=== PATIENT | male | born 1965 | race African-American/Black ===

== ENCOUNTER 2017-06-05 10:34 | Emergency (ER) | payer MEDICARE, MEDICAID, SELFPAY ==
[2017-06-05 10:35] VITALS: BP 156/92; PULSE 100; RESP 12; TEMP 36.6; O2SAT 100; BMI 26.2
[2017-06-05 11:19] LABS: Absolute Lymphocyte Count 2.19 X10^3/ul (0.83-4.51); Absolute Neutrophil Count 4.3 X10^3/uL (2.0-7.7); Basophil# 0.02 X10^3/uL; Basophil% 0.3 % (0-1); Eosinophil# 0.11 X10^3/uL; Eosinophils% 1.5 % (0-5); Hematocrit 46.2 % (40-54); Hemoglobin 16.5 g/dl (13.0-16.5); Lymphocyte # 2.19 X10^3/ul (4.0); Lymphocyte % 29.9 % (19-41); Mean Corp Hgb Conc 35.7 g/gl (32-36); Mean Corpuscular Hgb 31.5 pg (27.0-32.0); Mean Corpuscular Volume 88.3 fL (80-94); Mean Platelet Vol. 9.5 fl (6.2-12.0); Monocyte% 9.5 % (0-10); Neutrophil % 58.7 % (47-70); Platelet Count 249 K/mm3 (150-450); RBC Distribution Width CV 13.8 % (11.6-14.6); RBC Distribution Width SD 44.7 fl (35.1-43.9); Red Blood Count 5.23 M/mm3 (4.6-6.2); White Blood Count 7.3 K/mm3 (4.4-11.0)
[2017-06-05] MEDS: 0.9% Normal Saline 1,000 ML 1000 ML IV (11:20)
[2017-06-05] MEDS: Ondansetron 4 MG/2 ML Vial IV (11:20)
[2017-06-05 11:22] LABS: POSITIVE COUNT NO; POSITIVE DIFFERENTIAL NO; POSITIVE MORPHOLOGY NO
[2017-06-05 11:33] LABS: Anion Gap 7 (5-15); BUN 10 mg/dL (7-18); BUN/Creat Ratio 11.7 RATIO (10-20); Calcium,Total 9.1 mg/dL (8.5-10.1); Chloride 102 mmol/L (98-107); Creatinine, Serum 0.86 mg/dL (0.70-1.30); EST Glomerular Filtration Rate 99 mL/min (>60); Est Glom Filt Rate - Afr Amer 120 mL/min (>60); Estimated Creatinine Clearance 101.39 ml/min; Glucose 173 mg/dL (74-106); Potassium 3.8 mmol/L (3.5-5.1); Sodium Level 137 mmol/L (136-145)
[2017-06-05 11:47] LABS: Hemoglobin A1c 7.6 % (4.2-6.3)
--- NOTE | 2017-06-05 12:32 | ED.VISSUMM ---
- ER Visit Summary Date of Service: 06/05/17 Chief Complaint: Foot pain History of Present Illness: The patient is a [address] Forrest. He has a long-standing history of diabetic neuropathy. States that he is taking gabapentin for the pain and that his not been controlled for quite some time. States it is become unbearable over the past 2 days. He denies any recent injury. Describes the pain as sharp and diffuse over his feet and lower legs bilaterally. It is 10 out of 10 with walking and 8 out of 10 currently. Physical Examination: Vitals: Stable. Afebrile. General: Well-nourished and well-developed. Head: Normocephalic atraumatic. Neck: Supple, no lymphadenopathy. No JVD. Nontender. Cardiovascular: Regular rate and rhythm. No murmurs. Respiratory: No respiratory distress. Clear to auscultation bilaterally. Abdominal: Soft, nontender, nondistended, normal bowel sounds. No guarding, rebound, or peritoneal signs. Back: Nontender. Extremities: Nontender, no edema. 1+ dorsalis pedis pulse bilaterally. Mild diffuse tenderness palpation. Decreased sensation to light touch in a stocking distribution. Skin: Normal color, no rash. Neurologic: Alert and oriented ?3. Cranial nerves II through XII are intact. Normal strength and sensation. Psych: Normal affect. Test Results: CBC is normal. Chem-7 is marked for glucose of 173. Hemoglobin A1c is 7.6. Emergency Department Course and Treatment: Patient is to the dose of morphine and Zofran IV. He is resting comfortably. Treatment Plan: Patient will be discharged with a short course of Percocet. Instructed follow-up Dr. Forrest for further management of his neuropathy. Disposition: To home in improved and stable condition. Impression: 1. Diabetic neuropathy. This note was generated with [employer] dictation software. It may contain incorrect words, spelling, and punctuation that were not noted in review of the chart prior to signing ED Disposition - Plan for ED Patient: Disposition: Home or Assisted Living Chief Complaint: Other, Pain/Inj Instructions: What Is Peripheral Neuropathy? Prescriptions: Oxycodone HCl/Acetaminophen [Percocet 5/325] 1 tablet PO Q6H PRN PRN 3 Days #20 tablet PRN Reason: Pain Referrals: Doctor,Your [STAFF PHYSICIAN] - 3-5 Days if not improving
== END 2017-06-05 13:20 | disposition home or self-care (01) ==
LOC: ED 11:53
PROVIDERS: Emergency Provider Emergency Medicine
DX: E11.40 Type 2 diabetes mellitus with diabetic neuropathy, unspecified (principal); R20.2 Paresthesia of skin; R51 Headache; Z72.0 Tobacco use; Z79.84 Long term (current) use of oral hypoglycemic drugs; Z79.899 Other long term (current) drug therapy
CPT/HCPCS: 80048; 83036; 85025; 96361; 96374; 96375; 99283; J7030; A4216; J2405

== ENCOUNTER 2017-08-09 09:28 | Emergency (ER) | payer MEDICARE, MEDICAID, SELFPAY ==
[2017-08-09] VITALS (7 sets, daily range): BP systolic 94–139; BP diastolic 63–112; PULSE 57–117; RESP 17–26; TEMP 36.2; O2SAT 99–100; BMI 29.9
--- NOTE | 2017-08-09 09:31 | CT_ITS ---
STUDY: CT BRAIN WITHOUT CONTRAST REASON FOR EXAM: Male, 52 years old. CONFUSION, PT COMBATIVE. RADIATION DOSAGE (If Supplied By Facility): CTDIvol = ( 44.99 ) mGy, DLP = ( 796.11 ) mGycm TECHNIQUE: Transaxial CT imaging of the brain was performed without administration of intravenous contrast material. Individualized dose optimization techniques were used for this CT. COMPARISON: None. FINDINGS: Normal soft tissue structures. Normal calvarium. Normal size ventricles and extra-axial spaces for the patient's age. Normal white matter tracts of the cerebral hemispheres. Normal basal ganglia and thalami. Normal brainstem. Normal cerebellum. There is no intracranial hemorrhage. There are no findings of an acute ischemic infarction. Normal visualized paranasal sinuses. CT/Brain/Head without Contrast IMPRESSION: Normal unenhanced CT scan of the brain. Electronically Signed: Cristian Woodard MD at 10:18 EDT Tel , Service support ,
--- NOTE | 2017-08-09 09:31 | RAD_ITS ---
STUDY: X-RAY CHEST REASON FOR EXAM: Male, 52 years old. ALTERED LEVEL OF CONSCIOUSNESS TECHNIQUE: 1 view COMPARISON: None. FINDINGS: There is no focal consolidation, pneumothorax or pleural effusion. Normal visualized aortic arch and descending thoracic aorta. The cardiomediastinal silhouette is unremarkable. There are diffuse degenerative changes of the visualized thoracic spine. RAD/Chest 1 View (Portable) IMPRESSION: No acute pulmonary disease. Electronically Signed: Cristian Woodard MD at 10:47 EDT Tel , Service support ,
--- NOTE | 2017-08-09 09:32 | EKG12_ITS ---
Test Reason : REPEAT Blood Pressure : / mmHG Vent. Rate : 076 BPM Atrial Rate : 076 BPM P-R Int : 134 ms QRS Dur : 096 ms QT Int : 396 ms P-R-T Axes : 072 060 015 degrees QTc Int : 445 ms Normal sinus rhythm with sinus arrhythmia Nonspecific T wave abnormality Abnormal ECG Confirmed by BETTY BUI, MCKAY ([id number]), six sigma black trainer JOSE CRUMP ([id number]) on 08/11/2017 3:38:13 PM Referred By: DR MARTINEZ Confirmed By:MCKAY HERNÁNDEZ MD
[2017-08-09] MEDS: Ziprasidone IM 20 MG/ML VIAL IM (09:37)
[2017-08-09] MEDS: 0.9% Normal Saline 1,000 ML 1000 ML IV (09:44)
[2017-08-09 09:50] LABS: Bedside Glucose 204 mg/dL (70-110)
[2017-08-09 09:52] LABS: Basophil# 0.02 X10^3/uL; Basophil% 0.2 % (0-1); Eosinophil# 0.08 X10^3/uL; Hematocrit 43.9 % (40-54); Hemoglobin 15.9 g/dl (13.0-16.5); Lymphocyte % 26.4 % (19-41); Mean Corp Hgb Conc 36.2 g/gl (32-36); Mean Corpuscular Hgb 31.2 pg (27.0-32.0); Mean Corpuscular Volume 86.2 fL (80-94); Mean Platelet Vol. 9.4 fl (6.2-12.0); Monocyte# 0.99 X10^3/uL; Monocyte% 11.9 % (0-10); Neutrophil # 5.04 X10^3/uL (2.7-7.7); Neutrophil % 60.4 % (47-70); Platelet Count 330 K/mm3 (150-450); RBC Distribution Width CV 12.9 % (11.6-14.6); RBC Distribution Width SD 40.2 fl (35.1-43.9); Red Blood Count 5.09 M/mm3 (4.6-6.2); White Blood Count 8.3 K/mm3 (4.4-11.0)
[2017-08-09 09:53] LABS: POSITIVE COUNT NO; POSITIVE DIFFERENTIAL NO; POSITIVE MORPHOLOGY NO
--- NOTE | 2017-08-09 09:55 | ED.RN ---
PT'S HEART RATE AND BP DROPPED QUICKLY, NOTIFIED, ANOTHER IV STARTED WITH FLUIDS WIDE OPEN, 2LNC PLACED. RESTRAINTS FOR ELIANA FEET REMOVED
[2017-08-09 10:04] LABS: International Normalized Ratio 1.1; Prothrombin Time (Protime)PT. 14.1 SECONDS (11.7-14.9)
[2017-08-09 10:07] LABS: ALB/GLOB Ratio 0.9 RATIO (0.9-2.4); AST(SGOT) 44 U/L (15-37); Alanine Aminotransfer ALT/SGPT 54 U/L (16-61); Alkaline Phosphatase 90 U/L (45-117); Anion Gap 12 (5-15); BUN 13 mg/dL (7-18); BUN/Creat Ratio 10.1 RATIO (10-20); Calcium,Total 9.5 mg/dL (8.5-10.1); Chloride 103 mmol/L (98-107); Creatinine, Serum 1.29 mg/dL (0.70-1.30); EST Glomerular Filtration Rate 62 mL/min (>60); Est Glom Filt Rate - Afr Amer 75 mL/min (>60); Estimated Creatinine Clearance 67.59 ml/min; Globulin 4.4 g/dL (2.2-4.2); Glucose 172 mg/dL (74-106); Potassium 3.4 mmol/L (3.5-5.1); Protein, Total 8.4 g/dL (6.4-8.2); Sodium Level 140 mmol/L (136-145)
--- NOTE | 2017-08-09 10:16 | ED.RN ---
PT REMOVED FROM BACKBOARD AND RESTRAINTS. PT POSITIONED FOR COMFORT. PT RESTING COMFORTABLY AT THIS TIME.
[2017-08-09 10:19] LABS: Bacteria 0 SEEN /hpf (None Seen); Squamous Epithelial Cells - UA 0 SEEN /hpf (0-5)
[2017-08-09 10:22] LABS: Color, Urine Yellow (Yellow); Glucose, Dipstick Normal (Normal); Ketone-Dipstick 5 mg/dl (Negative); Leukocyte Esterase-Dipstick 100 /ul (Negative); Nitrite-Dipstick Negative (Negative); Occult Blood-Urine 10 /ul (Negative); Protein-Dipstick 100 mg/dl (Negative); Urine Bilirubin Dipstick 3 mg/dL (Negative); Urine Clarity Sl. Cloudy (Clear); Urine Urobilinogen 4 mg/dl (Normal)
[2017-08-09 10:28] LABS: Hyaline Cast 0-5 SEEN /lpf (0-5); Mucous, Urine 3+ /hpf (<or=2+); White Blood Cells 10-25 SEEN /hpf (0-5)
[2017-08-09 10:29] LABS: Red Blood Cells-Urine 0-5 SEEN /hpf (0-5)
[2017-08-09 10:48] LABS: Amphetamine Urine VISTA NEGATIVE (<1000 ng/mL); Barbiturate Urine VISTA NEGATIVE (< 200 ng/mL); Benzodiazepine Urine VISTA NEGATIVE (< 200 ng/mL); Cocaine Urine VISTA NEGATIVE (< 300 ng/mL); Ecstacy Urine VISTA NEGATIVE (< 500 ng/mL); Methadone Urine VISTA NEGATIVE (< 300 ng/mL); PCP Urine VISTA NEGATIVE (< 25 ng/mL); THC Urine VISTA POSITIVE (< 50 ng/mL); Vista UDS pH Range 5
[2017-08-09 11:29] LABS: Thyroid Stim Hormone (TSH) 0.58 uIU/mL (0.358-3.74)
[2017-08-09] MEDS: Ceftriaxone 1 GM/50 ML BAG IV (11:40)
[2017-08-09 12:04] LABS: Lactic Acid 1.3 mmol/L (0.4-2.0)
--- NOTE | 2017-08-09 12:09 | ED.RN ---
CALLED AND LEFT MESSAGE WITH THE [facility] FOR A MEDICATION LIST ON PT.
--- NOTE | 2017-08-09 12:21 | NURSING ---
CALLED [facility]. RN TALKED TO MAXIMINO MARTIN WILL BE COMING IN TO SEE PATIENT
--- NOTE | 2017-08-09 12:45 | EKG12_ITS ---
Test Reason : ALT MENTAL STATUS Blood Pressure : / mmHG Vent. Rate : 056 BPM Atrial Rate : 056 BPM P-R Int : 108 ms QRS Dur : 102 ms QT Int : 438 ms P-R-T Axes : 036 065 036 degrees QTc Int : 422 ms Sinus bradycardia with short MI ST & T wave abnormality, consider anterior ischemia Abnormal ECG Confirmed by BETTY BUI, MCKAY ([id number]), movie editor JOSE CRUMP ([id number]) on 08/11/2017 3:39:13 PM Referred By: MICHELLE Confirmed By:MCKAY HERNÁNDEZ MD
--- NOTE | 2017-08-09 13:41 | NURSING ---
MAXIMINO, [facility]ISIS, HERE
--- NOTE | 2017-08-09 16:56 | ED.VISSUMM ---
- ER Visit Summary Date of Service: 08/09/17 Chief Complaint: Confusion History of Present Illness: The patient is a [address] Rachel. Who presents very confused, agitated, and diaphoretic. I am unable to get any useful history from him. Squad had restrained him prior to arrival here. Patient's significant other did arise and reports that he got out of a 60 day stay at [facility] 3 days ago. She states that he was speaking about God much more than usual and that afternoon he began acting like he was God. Yesterday he danced around the house for approximately 4 hours. She reports that he was diaphoretic and hyper voodoo during this as well. She states that he has a history of bipolar disorder and schizophrenia. reports that he did not bring home any medications from [facility]. She is unsure whether he got medications while at [facility]. Physical Examination: Vitals: 97.2, 112/73, 89, 18, 90% room air which is not hypoxic. General: Well-nourished and well-developed. Head: Normocephalic atraumatic. Neck: Supple, no lymphadenopathy. No JVD. Nontender. Cardiovascular: Regular rate and rhythm. No murmurs. Respiratory: No respiratory distress. Clear to auscultation bilaterally. Abdominal: Soft, nontender, nondistended, normal bowel sounds. No guarding, rebound, or peritoneal signs. Back: Nontender. Extremities: Nontender, no edema. Skin: Normal color, no rash. Neurologic: Alert. Moves all extremities well. Psych: Agitated with nonsensical speech. Test Results: CT brain is normal. Chest x-ray shows chronic changes. EKG sinus bradycardia 56 and is unchanged from 2016. Repeat EKG is unchanged. Troponin is negative. Repeat troponin is negative. CBC is more for monocytes at 12. Chem-7 marked potassium 3.4 and glucose 172. LFTs marked for an AST of 44. INR is 1.1. UA has 10-25 white blood cells. However there are no bacteria. Tox screen shows marijuana. Blood alcohol level 0. TSH 0.58. Emergency Department Course and Treatment: Upon arrival to the emergency department the patient was agitated and was restrained for his safety and staff safety. He was given a dose of Rocephin IV and his urine was sent for culture. Treatment Plan: Patient was discussed with the counseling center. They have arranged for him to be admitted to [facility]. He is resting comfortably during his stay. Disposition: Transferred in improved condition. Impression: 1. Psychosis with medication noncompliance. 2. Ncu-cjusjlg-momcxaebl diabetes mellitus. This note was generated with [employer] dictation software. It may contain incorrect words, spelling, and punctuation that were not noted in review of the chart prior to signing ED Disposition - Plan for ED Patient: Chief Complaint: Alt LOC Referrals: Care Physician,No Primary [Primary Care Provider] -
--- NOTE | 2017-08-09 17:00 | ED.DCSUM_ITS ---
- ER Visit Summary Date of Service: 08/09/17 Chief Complaint: Confusion History of Present Illness: The patient is a [address] Rachel. Who presents very confused, agitated, and diaphoretic. I am unable to get any useful history from him. Squad had restrained him prior to arrival here. Patient's significant other did arise and reports that he got out of a [facility] stay at [facility] 3 days ago. She states that he was speaking about God much more than usual and that afternoon he began acting like he was God. Yesterday he danced around the house for approximately 4 hours. She reports that he was diaphoretic and hyper episcopalian during this as well. She states that he has a history of bipolar disorder and schizophrenia. reports that he did not bring home any medications from [facility]. She is unsure whether he got medications while at [facility]. Physical Examination: Vitals: 97.2, 112/73, 89, 18, 90% room air which is not hypoxic. General: Well-nourished and well-developed. Head: Normocephalic atraumatic. Neck: Supple, no lymphadenopathy. No JVD. Nontender. Cardiovascular: Regular rate and rhythm. No murmurs. Respiratory: No respiratory distress. Clear to auscultation bilaterally. Abdominal: Soft, nontender, nondistended, normal bowel sounds. No guarding, rebound, or peritoneal signs. Back: Nontender. Extremities: Nontender, no edema. Skin: Normal color, no rash. Neurologic: Alert. Moves all extremities well. Psych: Agitated with nonsensical speech. Test Results: CT brain is normal. Chest x-ray shows chronic changes. EKG sinus bradycardia 56 and is unchanged from 2016. Repeat EKG is unchanged. Troponin is negative. Repeat troponin is negative. CBC is more for monocytes at 12. Chem-7 marked potassium 3.4 and glucose 172. LFTs marked for an AST of 44. INR is 1.1. UA has 10-25 white blood cells. However there are no bacteria. Tox screen shows marijuana. Blood alcohol level 0. TSH 0.58. Emergency Department Course and Treatment: Upon arrival to the emergency department the patient was agitated and was restrained for his safety and staff safety. He was given a dose of Rocephin IV and his urine was sent for culture. Treatment Plan: Patient was discussed with the counseling center. They have arranged for him to be admitted to [facility]. He is resting comfortably during his stay. Disposition: Transferred in improved condition. Impression: 1. Psychosis with medication noncompliance. 2. Gpz-wjlnjnc-nrgvcbdkq diabetes mellitus. This note was generated with [employer] dictation software. It may contain incorrect words, spelling, and punctuation that were not noted in review of the chart prior to signing ED Disposition - Plan for ED Patient: Chief Complaint: Alt LOC Referrals: Care Physician,No Primary [Primary Care Provider] -
--- NOTE | 2017-08-09 17:16 | NURSING ---
CALLED [facility] FOR TRANSPORT TO [facility]. ETA IS 5 TO 6 HRS
--- NOTE | 2017-08-09 17:19 | NURSING ---
CALLED [facility] FOR [facility]. NONE AVAILABLE
[2017-08-09] MEDS: Gabapentin 800 MG Tablet 1600 MG PO (17:23)
[2017-08-09] MEDS: metFORMIN HCl 1,000 MG Tablet 1000 MG PO (17:23)
[2017-08-09] MEDS: glipiZIDE 10 MG Tablet PO (17:24)
--- NOTE | 2017-08-09 17:25 | NURSING ---
CALLED [facility], ETA IS 30 MIN
[2017-08-09] MEDS: Ziprasidone IM 20 MG/ML VIAL 10 MG IM (17:52)
== END 2017-08-09 18:35 ==
PROVIDERS: Emergency Provider Emergency Medicine
DX: F29 Unspecified psychosis not due to a substance or known physiological condition (principal); Z91.14 Patient's other noncompliance with medication regimen; E11.40 Type 2 diabetes mellitus with diabetic neuropathy, unspecified; Z72.0 Tobacco use; Z79.84 Long term (current) use of oral hypoglycemic drugs; Z79.899 Other long term (current) drug therapy; F31.9 Bipolar disorder, unspecified; F20.9 Schizophrenia, unspecified; R00.1 Bradycardia, unspecified
CPT/HCPCS: 70450; 71045; 80053; 80307; 80320; 81001; 82962; 83605; 84443; 84484; 85025; 85610; 87086; 93005; 96361; 96365; 96372; 99285; J7030; J7050; P9612; A4216; G0480; J3486

== ENCOUNTER 2017-09-24 14:04 | Emergency (ER) | payer MEDICARE, MEDICAID, SELFPAY ==
[2017-09-24 14:06] VITALS: BP 138/96; PULSE 98; RESP 16; TEMP 36.8; O2SAT 97; BMI 26.4
[2017-09-24 14:45] LABS: Bedside Glucose 275 mg/dL (70-110)
--- NOTE | 2017-09-24 14:53 | EKG12_ITS ---
Test Reason : HYPERGLYCEMIA Blood Pressure : / mmHG Vent. Rate : 089 BPM Atrial Rate : 089 BPM P-R Int : 134 ms QRS Dur : 096 ms QT Int : 360 ms P-R-T Axes : 076 037 008 degrees QTc Int : 438 ms Normal sinus rhythm Normal ECG Confirmed by MCKAY HERNÁNDEZ MD ([id number]), advertising editor JOSE CRUMP ([id number]) on 09/27/2017 3:52:54 PM Referred By: PAUL Confirmed By:MCKAY HERNÁNDEZ MD
[2017-09-24] MEDS: 0.9% Normal Saline 1,000 ML 1000 ML IV (15:04)
--- NOTE | 2017-09-24 15:04 | ED.VISSUMM ---
- ER Visit Summary Date of Service: 09/24/17 Chief Complaint: Numbness, weakness, abdominal pain History of Present Illness: The patient is a 52 M with history of snv-lvcjudj-gqfkhqntz diabetes presents to the emergency department with weakness and abdominal pain. The patient states of the past 10 days, he has had increased cramping abdominal pain. He states his been mildly nauseated. He states that his blood sugars been running in the 500s. He had increased urination. He is also had midepigastric abdominal pain that radiates into his back. He said cramping in both legs. states that he is just has not been himself. Patient does admit to occasional alcohol use. He denies any history of pancreatitis. Denies any history of prior abdominal surgery. Physical Examination: Vital signs reviewed General: Well-nourished, well-developed Head: Normocephalic, atraumatic Eyes: Pupils equal and reactive, extraocular muscles intact Neck, supple, no lymphadenopathy Heart: Regular rate and rhythm Respiratory: No distress, clear bilaterally Abdomen: Soft, mildly tender in the midepigastric area, nondistended, no peritoneal signs Back: Nontender Extremities: Nontender, no edema, no cords Skin: Normal color no rash Neuro: Alert and oriented, no focal or lateralizing deficits Test Results: [] Emergency Department Course and Treatment: The patient presents to the emergency department with multiple complaints. He was complaining of worsening pain and numbness in bilateral lower extremities. He has a history of neuropathy and states that my gabapentin just is not cutting it. He is also had some abdominal cramping and his blood sugars been running high. Metabolic workup was pursued. Patient does have a blood sugar of 275, but his bicarb is normal. There is no anion gap. His acetone is negative. Rest of the screening labs are relatively unremarkable. There is some slight elevation of his LFTs, but again he has no right upper quadrant tenderness. Patient was hydrated and given morphine and Zofran. He had resolution of his symptoms. He does have follow-up in place tomorrow morning with a new PCP. I do not see a dangerous process. I do for the patient is here for outpatient therapy. The patient is requesting a prescription for Percocet for his leg pain. I did discuss with him that this is a chronic pain issue needs to be addressed by his primary care physician. He will be discharged home. Treatment Plan: [] Disposition: Discharge Impression: 1. Abdominal cramping 2. Hyperglycemia 3. Neuropathy This note was generated with [employer] dictation software. It may contain incorrect words, spelling, and punctuation that were not noted in review of the chart prior to signing ED Disposition - Plan for ED Patient: Chief Complaint: Hyperglycemia Instructions: ED Hyperglycemia Diabetic Prescriptions: Ondansetron [Zofran Odt] 4 mg PO Q8H PRN PRN #10 tab PRN Reason: Nausea Dicyclomine HCl [Bentyl] 20 mg PO TIDAC #20 cap Referrals: Gerald Rachel MD [Primary Care Provider] -
[2017-09-24] MEDS: Ondansetron 4 MG/2 ML Vial IV (15:05)
[2017-09-24] MEDS: morphine 8 MG/ML Syringe IV (15:06)
[2017-09-24 15:24] LABS: Absolute Lymphocyte Count 2.52 X10^3/ul (0.83-4.51); Absolute Neutrophil Count 4.5 X10^3/uL (2.0-7.7); Basophil# 0.02 X10^3/uL; Basophil% 0.3 % (0-1); Eosinophil# 0.07 X10^3/uL; Eosinophils% 0.9 % (0-5); Hematocrit 49.9 % (40-54); Hemoglobin 17.5 g/dl (13.0-16.5); Lymphocyte # 2.52 X10^3/ul (4.0); Lymphocyte % 31.9 % (19-41); Mean Corp Hgb Conc 35.1 g/gl (32-36); Mean Corpuscular Volume 88.5 fL (80-94); Mean Platelet Vol. 9.7 fl (6.2-12.0); Monocyte# 0.76 X10^3/uL; Monocyte% 9.6 % (0-10); Neutrophil # 4.51 X10^3/uL (2.7-7.7); Neutrophil % 57.2 % (47-70); Platelet Count 256 K/mm3 (150-450); RBC Distribution Width SD 42.2 fl (35.1-43.9); Red Blood Count 5.64 M/mm3 (4.6-6.2); White Blood Count 7.9 K/mm3 (4.4-11.0)
[2017-09-24 15:25] LABS: POSITIVE COUNT NO; POSITIVE DIFFERENTIAL NO; POSITIVE MORPHOLOGY NO
[2017-09-24 15:52] LABS: ALB/GLOB Ratio 0.8 RATIO (0.9-2.4); AST(SGOT) 64 U/L (15-37); Alanine Aminotransfer ALT/SGPT 81 U/L (16-61); Albumin, Serum 3.6 g/dL (3.2-5.0); Alkaline Phosphatase 97 U/L (45-117); Anion Gap 8 (5-15); BUN 13 mg/dL (7-18); BUN/Creat Ratio 14.2 RATIO (10-20); Chloride 95 mmol/L (98-107); Creatinine, Serum 0.92 mg/dL (0.70-1.30); EST Glomerular Filtration Rate 91 mL/min (>60); Est Glom Filt Rate - Afr Amer 110 mL/min (>60); Estimated Creatinine Clearance 94.78 ml/min; Globulin 4.8 g/dL (2.2-4.2); Glucose 265 mg/dL (74-106); Lactic Acid 1.9 mmol/L (0.4-2.0); Lipase 156 U/L (73-393); Potassium 4.4 mmol/L (3.5-5.1); Protein, Total 8.4 g/dL (6.4-8.2); Sodium Level 130 mmol/L (136-145)
[2017-09-24] MEDS: oxyCODONE 5 MG Tablet PO (16:30)
[2017-09-24 16:33] VITALS: BP 159/87; PULSE 86; RESP 18; O2SAT 98
--- NOTE | 2017-09-24 16:34 | ED.RN ---
REVIEWED D/C INSTRUCTIONS, FOLLOW UP CARE, PRESCRIPTIONS, AND S/S THAT WOULD WARRANT A RETURN TO THE ED WITH PT. PT VERBALIZED AN UNDERSTANDING AND DENIES FURTHER QUESTIONS FOR THIS RN. PT SKIN WARM/DRY, RESP EVEN AND UNLABORED, PT A&O X 3,NO DISTRESS NOTED. PT AMBULATED OUT OF ED, GAIT STEADY.
== END 2017-09-24 16:35 | disposition home or self-care (01) ==
LOC: ED 15:44
PROVIDERS: Emergency Provider Emergency Medicine; Family Provider Family Medicine; PCP Family Medicine
DX: R10.9 Unspecified abdominal pain (principal); R11.0 Nausea; M79.1 Myalgia; E11.40 Type 2 diabetes mellitus with diabetic neuropathy, unspecified; E11.65 Type 2 diabetes mellitus with hyperglycemia; M79.606 Pain in leg, unspecified; G89.29 Other chronic pain; Z72.0 Tobacco use; Z79.84 Long term (current) use of oral hypoglycemic drugs; Z79.899 Other long term (current) drug therapy
CPT/HCPCS: 80053; 82009; 82962; 83605; 83690; 85025; 93005; 96361; 96374; 96375; 99285; J7030; A4216; J2405

== ENCOUNTER 2017-12-30 19:30 | Emergency (ER) | payer MEDICARE, MEDICAID, SELFPAY ==
[2017-12-30 19:30] VITALS: BP 142/87; PULSE 107; RESP 20; TEMP 37.2; O2SAT 99; BMI 27.2
[2017-12-30 21:20] LABS: Absolute Lymphocyte Count 2.76 X10^3/ul (0.83-4.51); Absolute Neutrophil Count 4.8 X10^3/uL (2.0-7.7); Basophil# 0.01 X10^3/uL; Basophil% 0.1 % (0-1); Eosinophil# 0.11 X10^3/uL; Eosinophils% 1.3 % (0-5); Hematocrit 46.8 % (40-54); Hemoglobin 16.5 g/dl (13.0-16.5); Lymphocyte # 2.76 X10^3/ul (4.0); Lymphocyte % 33.6 % (19-41); Mean Corp Hgb Conc 35.3 g/gl (32-36); Mean Platelet Vol. 9.6 fl (6.2-12.0); Monocyte# 0.56 X10^3/uL; Monocyte% 6.8 % (0-10); Neutrophil # 4.77 X10^3/uL (2.7-7.7); Neutrophil % 58.1 % (47-70); POSITIVE COUNT NO; POSITIVE DIFFERENTIAL NO; POSITIVE MORPHOLOGY NO; Platelet Count 261 K/mm3 (150-450); RBC Distribution Width CV 13.3 % (11.6-14.6); Red Blood Count 5.32 M/mm3 (4.6-6.2); White Blood Count 8.2 K/mm3 (4.4-11.0)
[2017-12-30 21:30] LABS: Anion Gap 7 (5-15); BUN 8 mg/dL (7-18); BUN/Creat Ratio 9.1 RATIO (10-20); Calcium,Total 9.5 mg/dL (8.5-10.1); Chloride 100 mmol/L (98-107); Creatinine, Serum 0.88 mg/dL (0.70-1.30); EST Glomerular Filtration Rate 96 mL/min (>60); Est Glom Filt Rate - Afr Amer 116 mL/min (>60); Estimated Creatinine Clearance 99.08 ml/min; Glucose 277 mg/dL (74-106); Potassium 4.1 mmol/L (3.5-5.1); Sodium Level 135 mmol/L (136-145)
--- NOTE | 2017-12-30 21:30 | CT_ITS ---
STUDY: CT ABDOMEN AND PELVIS WITHOUT CONTRAST REASON FOR EXAM: Male, 52 years old. Right flank pain and low back pain RADIATION DOSAGE (If Supplied By Facility): CTDIvol = ( 8.80 ) mGy, DLP = ( 448.74 ) mGycm TECHNIQUE: Transaxial images were obtained from the dome of the diaphragm to the symphysis pubis without oral contrast, and without intravenous contrast. Sagittal and coronal images were reconstructed. Individualized dose optimization techniques were used for this CT. COMPARISON: None. FINDINGS: The visualized lung bases are unremarkable. The visualized portions of the heart are within normal limits. Normal liver. Normal gallbladder and extrahepatic biliary system. Normal spleen. Normal pancreas. Normal bilateral adrenal glands. Normal right kidney. Normal left kidney. Normal visualized stomach. Normal small intestine. Normal colon. The appendix is visualized and appears normal. Normal abdominal aorta. Normal inferior vena cava. Normal retroperitoneum. Normal urinary bladder. There are prostatic calcifications. Normal abdominal wall. Mild compression deformity of L1 without retropulsion. This is likely remote. Consider MRI correlation to confirm this if clinically indicated. CT/Abdomen/Pelvis without Cont IMPRESSION: No evidence of acute intestinal pathology or acute obstructive uropathy. Mild compression deformity of L1 without retropulsion. This is likely remote. Consider MRI correlation to confirm this if clinically indicated. Electronically Signed: Gene Gonzales MD at 22:29 EDT Tel , Service support ,
[2017-12-30 21:34] LABS: Bacteria 0 SEEN /hpf (None Seen); Mucous, Urine 0 SEEN /hpf (<or=2+); Red Blood Cells-Urine 0 SEEN /hpf (0-5)
[2017-12-30 21:36] LABS: Color, Urine Yellow (Yellow); Glucose, Dipstick 1000 mg/dl (Normal); Ketone-Dipstick Negative (Negative); Leukocyte Esterase-Dipstick Negative /ul (Negative); Nitrite-Dipstick Negative (Negative); Occult Blood-Urine Negative /ul (Negative); Protein-Dipstick 30 mg/dl (Negative); Urine Bilirubin Dipstick Negative (Negative); Urine Clarity Clear (Clear); Urine Urobilinogen 4 mg/dl (Normal)
[2017-12-30 22:01] LABS: Squamous Epithelial Cells - UA 0-5 SEEN /hpf (0-5)
[2017-12-30 22:04] LABS: White Blood Cells 0-5 SEEN /hpf (0-5)
[2017-12-30] MEDS: Ketorolac 30 MG/ML Syringe IV (22:50)
--- NOTE | 2017-12-30 23:20 | ED.DCSUM_ITS ---
- ER Visit Summary Date of Service: 12/30/17 Chief Complaint: Abdominal pain History of Present Illness: The patient is a 52 M who has history of diabetes and states for the past week he has had some abdominal pain. Particularly the right lower quadrant and into his flank. Further questioning shows that he has has discomfort throughout the abdomen. He notes decreased energy. He notes some nausea and vomiting. No diarrhea. Had a normal bowel movement today. No new medications. No fevers. No urinary symptoms. Physical Examination: Afebrile vital signs are stable Gen: Well-nourished well-developed Head: Normocephalic atraumatic Eyes: Perrl EOMI ENT: TMs clear no rhinorrhea moist mucous membranes Neck: Supple no lymphadenopathy no JVD nontender CVS: Regular rate rhythm no murmurs normal S1-S2 Respiratory: No distress clear to auscultation bilaterally chest nontender Abdomen: Soft diffusely tender without guarding or rebound nondistended normal bowel sounds no masses Back: Nontender Extremity: Nontender no edema Skin: Normal color no rash Neuro: alert orientated ?3 CN II-XII intact normal strength sensation reflexes gait cerebellar Psych: Normal affect normal mood Test Results: CBC BMP showed glucose of 277. Urinalysis was normal. CT the abdomen and pelvis negative. Emergency Department Course and Treatment: Patient received a dose of Toradol. He will be discharged home with supportive care I will write for some Bentyl and Reglan for him try he has follow-up appointment on with his doctor. Impression: 1. Abdominal pain This note was generated with [employer] dictation software. It may contain incorrect words, spelling, and punctuation that were not noted in review of the chart prior to signing ED Disposition - Plan for ED Patient: Disposition: Home or Assisted Living Chief Complaint: Abd Pain Instructions: ED Abdominal Pain Unkn Cause Prescriptions: Dicyclomine HCl [Bentyl] 20 mg PO TIDAC #20 cap Metoclopramide [Reglan] 10 mg PO 4X/DAY PRN #20 tab PRN Reason: Headache Referrals: Gerald Rachel MD [Primary Care Provider] - (as scheduled on )
[2017-12-30 23:35] VITALS: BP 149/97; PULSE 97; RESP 16; O2SAT 97
== END 2017-12-30 23:36 | disposition home or self-care (01) ==
PROVIDERS: Emergency Medicine; Emergency Provider Emergency Medicine; Family Provider Family Medicine; PCP Family Medicine
DX: R10.9 Unspecified abdominal pain (principal); R11.2 Nausea with vomiting, unspecified; E11.9 Type 2 diabetes mellitus without complications; Z72.0 Tobacco use; Z79.84 Long term (current) use of oral hypoglycemic drugs; Z79.899 Other long term (current) drug therapy
CPT/HCPCS: 74176; 80048; 81001; 85025; 96374; 99284; A4216

== ENCOUNTER 2018-03-03 12:10 | Emergency (ER) | payer MEDICARE, SELFPAY ==
[2018-03-03 12:10] VITALS: BP 164/89; PULSE 81; RESP 13; TEMP 36.6; O2SAT 100; BMI 25.8
--- NOTE | 2018-03-03 12:30 | EKG12_ITS ---
Test Reason : CHEST PAIN Blood Pressure : / mmHG Vent. Rate : 083 BPM Atrial Rate : 083 BPM P-R Int : 130 ms QRS Dur : 100 ms QT Int : 360 ms P-R-T Axes : 074 053 025 degrees QTc Int : 423 ms Normal sinus rhythm Normal ECG Confirmed by BETTY BUI, MCKAY ([id number]), news editor JARETT VU ([id number]) on 03/05/2018 1:52:03 PM Referred By: DONNIE Confirmed By:MCKAY HERNÁNDEZ MD
--- NOTE | 2018-03-03 12:30 | ED.VISSUMM ---
- ER Visit Summary Date of Service: 03/03/18 Chief Complaint: Chest pain History of Present Illness: The patient is a 52 M with intermittent chest pain that has been going on for over a year. The patient gets intermittent chest pain in his left chest that lasts a second or a few seconds. It feels sharp and it is brought on by stress. No other associated symptoms with it. He had a stress test years ago and he said it was normal. He reports a history of diabetes but denies any other medical history. He does smoke. Denies any coronary history, PE, or dissection history. Denies fever or infectious symptoms. Physical Examination: Afebrile and vital signs are unremarkable. No acute distress. Sitting comfortably. Heart regular rate and rhythm. Lungs clear in all reich. Abdomen soft and nontender. Extremities nontender with no edema. Skin normal in color with no pallor or diaphoresis. Test Results: KG showed sinus rhythm at a rate of 83. No sign of acute ischemia or infarction pattern. Chest x-ray and laboratory studies pending. Emergency Department Course and Treatment: Placed on a monitor. Treated with aspirin while awaiting results. His main risk factors include his age and his history of diabetes. Otherwise his symptoms sound nothing like ACS, PE, or dissection. He is not having any ectopic beats or dysrhythmias. Patient tells me that he cannot be admitted because he has things to do today. Workup was unremarkable. X-ray was negative. Labs negative. Patient said that he needed to leave and could not wait any longer. He declined admission. I recommended admission. He said he could not be admitted and would come back if he has any issues. Treatment Plan: As above Disposition: Discharge Impression: 1. Chest pain This note was generated with [employer] dictation software. It may contain incorrect words, spelling, and punctuation that were not noted in review of the chart prior to signing ED Disposition - Plan for ED Patient: Chief Complaint: Chest Pain Referrals: Gerald Rachel MD [Primary Care Provider] -
[2018-03-03] MEDS: Aspirin 81 MG TAB.CHEW 324 MG PO (12:34)
[2018-03-03 12:37] VITALS: O2SAT 99
--- NOTE | 2018-03-03 12:40 | RAD_ITS ---
STUDY: X-RAY CHEST REASON FOR EXAM: Male, 52 years old. Chest pain. TECHNIQUE: Single AP portable view of the chest. COMPARISON: 08/09/2017. FINDINGS: The lungs are clear and expanded. There is no demonstrated pleural abnormality. Normal size heart. Normal mediastinum and estelita. Normal visualized pulmonary arteries. Normal visualized aortic arch and descending thoracic aorta. There are degenerative changes of the visualized thoracic spine. Normal visualized ribs, clavicles, and shoulders. There is no demonstrated abnormality of the visualized soft tissue structures of the upper abdomen. RAD/Chest 1 View (Portable) IMPRESSION: No active pulmonary disease. Electronically Signed: Rajiv Egan MD at 13:03 EST Tel , Service support ,
[2018-03-03 12:42] LABS: Absolute Lymphocyte Count 2.36 X10^3/ul (0.83-4.51); Absolute Neutrophil Count 5.8 X10^3/uL (2.0-7.7); Basophil# 0.01 X10^3/uL; Basophil% 0.1 % (0-1); Eosinophil# 0.08 X10^3/uL; Eosinophils% 0.9 % (0-5); Hematocrit 43.9 % (40-54); Hemoglobin 15.4 g/dl (13.0-16.5); Lymphocyte # 2.36 X10^3/ul (4.0); Lymphocyte % 25.9 % (19-41); Mean Corp Hgb Conc 35.1 g/gl (32-36); Mean Corpuscular Hgb 31.2 pg (27.0-32.0); Mean Platelet Vol. 9.6 fl (6.2-12.0); Monocyte# 0.82 X10^3/uL; Neutrophil # 5.82 X10^3/uL (2.7-7.7); POSITIVE COUNT NO; POSITIVE DIFFERENTIAL NO; POSITIVE MORPHOLOGY NO; Platelet Count 253 K/mm3 (150-450); RBC Distribution Width CV 13.8 % (11.6-14.6); RBC Distribution Width SD 45.2 fl (35.1-43.9); Red Blood Count 4.93 M/mm3 (4.6-6.2); White Blood Count 9.1 K/mm3 (4.4-11.0)
--- NOTE | 2018-03-03 12:44 | ED.RN ---
While in triage pt stated i will leave if this takes over two hours. I informed him that the average stay in the department is 3-4 hours. He was told that leaving prior to completion of his test that he could be placing his life in jeopardy. pt sighed and walked into the department for eval. shanna guthrie, rn [id number]
[2018-03-03 12:54] LABS: Anion Gap 10 (5-15); BUN 7 mg/dL (7-18); BUN/Creat Ratio 8.1 RATIO (10-20); Chloride 104 mmol/L (98-107); Creatinine, Serum 0.87 mg/dL (0.70-1.30); EST Glomerular Filtration Rate 97 mL/min (>60); Est Glom Filt Rate - Afr Amer 117 mL/min (>60); Estimated Creatinine Clearance 100.22 ml/min; Glucose 113 mg/dL (74-106); Potassium 3.5 mmol/L (3.5-5.1); Sodium Level 140 mmol/L (136-145)
[2018-03-03 13:34] VITALS: RESP 18
--- NOTE | 2018-03-03 13:34 | ED.DEP ---
ED Disposition - Plan for ED Patient: Chief Complaint: Chest Pain Instructions: ED Chest Pain Atypical Unkn Cause Referrals: Gerald Rachel MD [Primary Care Provider] -
== END 2018-03-03 13:37 | disposition home or self-care (01) ==
LOC: ED 12:58
PROVIDERS: Emergency Provider Emergency Medicine; Family Provider Family Medicine; PCP Family Medicine
DX: R07.9 Chest pain, unspecified (principal); E11.9 Type 2 diabetes mellitus without complications; Z72.0 Tobacco use; Z79.84 Long term (current) use of oral hypoglycemic drugs; Z79.899 Other long term (current) drug therapy
CPT/HCPCS: 71045; 80048; 84484; 85025; 93005; 99284; A4216

== ENCOUNTER 2018-06-05 15:54 | Emergency (ER) | payer MEDICARE, SELFPAY ==
[2018-06-05 15:54] VITALS: BP 163/88; PULSE 92; RESP 18; TEMP 36.6; O2SAT 100; BMI 26.8
[2018-06-05] MEDS: HYDROcodone Bitartrate/Apap 5/325 Tablet PO (16:34)
--- NOTE | 2018-06-05 16:42 | RAD_ITS ---
STUDY: X-RAY - LEFT KNEE REASON FOR EXAM: Male, 53 years old. Left knee pain. TECHNIQUE: 4 view(s) of the knee. COMPARISON: None. FINDINGS: Normal visualized distal femur. Normal visualized proximal tibia and fibula. Normal proximal tibiofibular articulation. There is no demonstrated fracture. Normal medial femorotibial compartment. Normal lateral femorotibial compartment. Normal patellofemoral articulation. There is no demonstrated joint effusion. The soft tissue structures are unremarkable. RAD/Knee 4 or More Views IMPRESSION: Normal x-ray examination of the knee. Electronically Signed: Papito Burns MD at 17:05 EST , Service support ,
[2018-06-05 16:50] LABS: Absolute Lymphocyte Count 2.33 X10^3/ul (0.83-4.51); Absolute Neutrophil Count 3.1 X10^3/uL (2.0-7.7); Basophil# 0.01 X10^3/uL; Basophil% 0.2 % (0-1); Eosinophil# 0.08 X10^3/uL; Eosinophils% 1.3 % (0-5); Hematocrit 46.4 % (40-54); Lymphocyte # 2.33 X10^3/ul (4.0); Lymphocyte % 37.3 % (19-41); Mean Corp Hgb Conc 34.5 g/gl (32-36); Mean Corpuscular Hgb 31.3 pg (27.0-32.0); Mean Corpuscular Volume 90.6 fL (80-94); Mean Platelet Vol. 9.9 fl (6.2-12.0); Monocyte% 11.2 % (0-10); Neutrophil # 3.11 X10^3/uL (2.7-7.7); Neutrophil % 49.8 % (47-70); Platelet Count 227 K/mm3 (150-450); RBC Distribution Width CV 13.7 % (11.6-14.6); RBC Distribution Width SD 45.3 fl (35.1-43.9); Red Blood Count 5.12 M/mm3 (4.6-6.2); White Blood Count 6.2 K/mm3 (4.4-11.0)
[2018-06-05 16:52] VITALS: BP 141/76; PULSE 84; RESP 14; O2SAT 100
[2018-06-05 16:52] LABS: POSITIVE COUNT NO; POSITIVE DIFFERENTIAL NO; POSITIVE MORPHOLOGY NO
[2018-06-05 17:10] LABS: ALB/GLOB Ratio 0.8 RATIO (0.9-2.4); AST(SGOT) 30 U/L (15-37); Alanine Aminotransfer ALT/SGPT 40 U/L (16-61); Albumin, Serum 3.5 g/dL (3.2-5.0); Alkaline Phosphatase 100 U/L (45-117); Anion Gap 7 (5-15); BUN 8 mg/dL (7-18); BUN/Creat Ratio 9.6 RATIO (10-20); Calcium,Total 9.1 mg/dL (8.5-10.1); Chloride 103 mmol/L (98-107); Creatinine, Serum 0.84 mg/dL (0.70-1.30); EST Glomerular Filtration Rate 101 mL/min (>60); Est Glom Filt Rate - Afr Amer 123 mL/min (>60); Globulin 4.3 g/dL (2.2-4.2); Glucose 204 mg/dL (74-106); Potassium 4.2 mmol/L (3.5-5.1); Protein, Total 7.8 g/dL (6.4-8.2); Sodium Level 133 mmol/L (136-145)
--- NOTE | 2018-06-05 19:35 | ED.VISSUMM ---
- ER Visit Summary Date of Service: 06/05/18 Chief Complaint: Atraumatic left knee pain and hip pain for 2.5 days History of Present Illness: The patient is a 53 M who has history of diabetes presents with atraumatic left knee pain that he localizes over the medial aspect of the knee and his hip pain he points to the left ischial tuberosity/buttocks area. He does report night sweats and weight loss. He denies fever or chills. He denies ocular, visual auditory symptoms. He denies cardiac respiratory symptoms. He denies radicular pain. He denies foot drop. He denies thigh muscle weakness going up or down steps. He denies saddle paresthesia or anesthesia. He denies bowel or bladder dysfunction. He denies abdominal pain. He denies back pain. Physical Examination: Vital signs noted. He is a thin middle-aged gentleman who appears in no obvious distress. He is rubbing the medial aspect of his left knee. HEENT exam is unremarkable. Heart is regular without murmur, gallop or rub. S1 and S2 are normal. Lungs are clear to auscultation with good movement of air bilaterally. Abdomen is soft and nontender. There is no guarding or peritoneal findings. There is no palpable pulsatile mass. There is no abdominal bruit. Live sign is negative. Negative Rovsing sign. There is no evidence of inguinal or umbilical hernia. There is no pain abrasion of the back. There is pain the patient over the left ischial tuberosity. Straight leg test negative. Crossover test negative. Patella and ankle reflex are 1+ and symmetric. EHL is intact. Normal perianal sensation. He is able to walk on his heels and toes. He is able to perform one leg squat right and left. DP and PT pulse are palpable. He has no evidence of cellulitis. There is no evidence of trauma. Left knee is not swollen compared to the right. The patella is not ballotable. There is no effusion. There is joint line discomfort medially. Varus valgus stress testing causes discomfort over the medial collateral ligament; however, there is no laxity. Negative Eliza's test. Negative modified Ramya's test. Test Results: 4 view x-ray of the knee was obtained and is normal per my interpretation. Emergency Department Course and Treatment: X-ray of the knee was obtained since he has joint line tenderness. There is no suggestion of effusion or any evidence of patella or infrapatellar bursitis. Treatment Plan: Since patient is diabetic he received 1 [place] tablet. Because of the weight loss night sweats blood work was obtained which was unremarkable i.e. CBC, basic medical panel and hepatic other than a glucose of 204. Patient is diabetic. Disposition: Discharge to home to follow-up with PCP Dr. Joe Bradshaw Impression: 1. Atraumatic left knee pain uncertain etiology 2. Hyperglycemia and diabetic 3. Left buttocks pain uncertain etiology This note was generated with [employer] software. It may contain incorrect words, spelling, and punctuation that were not noted in review of the chart prior to signing ED Disposition - Plan for ED Patient: Disposition: Home or Assisted Living Instructions: ED Knee Pain [facility] Referrals: Gerald Rachel MD [Primary Care Provider] - 3-5 Days if not improving Additional Instructions: Recommend taking aspirin for your knee pain and follow-up with your PCP if no improvement in 3-5 days.
--- NOTE | 2018-06-05 19:48 | ED.RN ---
DISCHARGE INSTRUCTIONS GIVEN TO AND REVIEWED WITH PATIENT, PATIENT DENIES QUESTIONS OR CONCERNS AND VOICES UNDERSTANDING OF DISCHARGE INSTRUCTIONS. PT AMBULATES OUT OF ROOM WITHOUT ISSUE.
== END 2018-06-05 19:49 | disposition home or self-care (01) ==
PROVIDERS: Emergency Provider Emergency Medicine; Family Provider Family Medicine; PCP Family Medicine
DX: M25.562 Pain in left knee (principal); M25.552 Pain in left hip; E11.65 Type 2 diabetes mellitus with hyperglycemia; M79.18 Myalgia, other site; Z72.0 Tobacco use; Z79.84 Long term (current) use of oral hypoglycemic drugs; Z79.899 Other long term (current) drug therapy
CPT/HCPCS: 36415; 73564; 80053; 85025; 99282

== ENCOUNTER 2018-09-09 22:20 | Emergency (ER) | payer MEDICARE, SELFPAY ==
[2018-09-09 22:20] VITALS: BP 124/70; PULSE 119; RESP 18; TEMP 36.7; O2SAT 100; BMI 24.5
--- NOTE | 2018-09-09 23:23 | RAD_ITS ---
HISTORY: CPChest PainRAD - Chest EXAM: XR Chest 1 View: COMPARISON: March 03, 2018 FINDINGS: # of images incl. paperwork: 1 Lungs are clear. Heart is not enlarged. Thoracic spondylosis with bridging enthesophytes at many levels is unchanged. Pulmonary vascularity is distinct. No effusions. RAD/Chest 1 View (Portable) IMPRESSION: No acute cardiopulmonary disease perceived. at [id number] Reported and signed by: Juan Ribera MD Electronically Signed: Juan Ribera MD at 23:52 EDT Tel , Service support ,
--- NOTE | 2018-09-09 23:23 | EKG12_ITS ---
Test Reason : DIZZINESS Blood Pressure : / mmHG Vent. Rate : 099 BPM Atrial Rate : 099 BPM P-R Int : 126 ms QRS Dur : 096 ms QT Int : 358 ms P-R-T Axes : 082 048 043 degrees QTc Int : 459 ms Normal sinus rhythm Possible Left atrial enlargement Nonspecific T wave abnormality Abnormal ECG Confirmed by BETTY BUI, MCKAY ([id number]), food editor JOSE CRUMP ([id number]) on 09/10/2018 11:54:36 AM Referred By: MICHELLE Confirmed By:MCKAY HERNÁNDEZ MD
[2018-09-09 23:51] VITALS: BP 102/87; BP 134/91; BP 141/90; PULSE 104; PULSE 89; PULSE 98
[2018-09-09] MEDS: 0.9% Normal Saline 1,000 ML 1000 ML IV (23:57)
[2018-09-09 23:59] LABS: Absolute Neutrophil Count 2.6 X10^3/uL (2.0-7.7); Basophil# 0.01 X10^3/uL; Basophil% 0.2 % (0-1); Eosinophil# 0.03 X10^3/uL; Eosinophils% 0.6 % (0-5); Hematocrit 45.1 % (40-54); Lymphocyte % 35.4 % (19-41); Mean Corpuscular Volume 87.6 fL (80-94); Mean Platelet Vol. 10.5 fl (6.2-12.0); Monocyte# 0.61 X10^3/uL; Neutrophil # 2.62 X10^3/uL (2.7-7.7); Neutrophil % 51.6 % (47-70); Platelet Count 200 K/mm3 (150-450); RBC Distribution Width CV 13.8 % (11.6-14.6); RBC Distribution Width SD 44.4 fl (35.1-43.9); Red Blood Count 5.15 M/mm3 (4.6-6.2); White Blood Count 5.1 K/mm3 (4.4-11.0)
[2018-09-10 00:03] LABS: Anion Gap 12 (5-15); BUN 9 mg/dL (7-18); BUN/Creat Ratio 11.4 RATIO (10-20); Calcium,Total 9.4 mg/dL (8.5-10.1); Chloride 103 mmol/L (98-107); Creatinine, Serum 0.79 mg/dL (0.70-1.30); EST Glomerular Filtration Rate 108 mL/min (>60); Est Glom Filt Rate - Afr Amer 131 mL/min (>60); Estimated Creatinine Clearance 109.09 ml/min; Glucose 168 mg/dL (74-106); Potassium 3.7 mmol/L (3.5-5.1); Sodium Level 142 mmol/L (136-145)
[2018-09-10 00:04] LABS: Hemoglobin 16.6 g/dl (13.0-16.5); Mean Corp Hgb Conc 36.2 g/gl (32-36); Mean Corpuscular Hgb 32.2 pg (27.0-32.0)
[2018-09-10 00:05] LABS: POSITIVE COUNT NO; POSITIVE DIFFERENTIAL NO; POSITIVE MORPHOLOGY NO
[2018-09-10] MEDS: Aspirin 81 MG TAB.CHEW 324 MG PO (00:21)
[2018-09-10 00:43] LABS: D-Dimer Quantitative (DVT/PE) < 0.27 FEU/ug/m (0.27-0.49)
--- NOTE | 2018-09-10 01:04 | ED.DCSUM_ITS ---
- ER Visit Summary Date of Service: 09/10/18 Chief Complaint: Chest pain and dehydrated History of Present Illness: The patient is a [address] Dane blum. He reports he has chest pain that began this morning. It is a constant sharp pain that is 8 out of 10 severity. Nothing makes this better or worse. Is unchanged with exertion or deep breaths. No change with movement. He denies any associated shortness of breath, diaphoresis, nausea, or vomiting. Patient reports that he has been lightheaded. This does increase when he stands. He has not passed out. He denies any other complaints. Physical Examination: Vitals: Stable. Afebrile. General: Well-nourished and well-developed. Head: Normocephalic atraumatic. Neck: Supple, no lymphadenopathy. No JVD. Nontender. Cardiovascular: Regular rate and rhythm. No murmurs. Respiratory: No respiratory distress. Clear to auscultation bilaterally. Abdominal: Soft, nontender, nondistended, normal bowel sounds. No guarding, rebound, or peritoneal signs. Back: Nontender. Extremities: Nontender, no edema. Skin: Normal color, no rash. Neurologic: Alert and oriented ?3. Cranial nerves II through XII are intact. Normal strength and sensation. Psych: Normal affect. Test Results: EKG is sinus at [address] changes. There are no significant changes from March 03, 2018. CBC shows a hemoglobin of 16.6 and monocytes of 12. Chem-7 shows a glucose of 168. D-dimer is negative. Troponin is 0.077. Emergency Department Course and Treatment: Patient had negative prostatic vital signs. He was given a liter of normal saline. He was given aspirin p.o. Treatment Plan: I discussed the patient and the fact that he has an indeterminate troponin. I feel that he should stay in the hospital to have further evaluation and a stress test. Patient has refused this. I discussed them that this could be his heart that his elevated his troponin. He could have a heart attack, problems with the rhythm of his heart, disability, or even . He is able to repeat this back to me. He does have the capacity to make this decision. He will be discharged instructions to follow-up his primary care physician as soon as possible. Return to emerge department for any worsening pain, shortness of breath, or even if he changes his mind. Is instructed to take a baby aspirin every day. Disposition: To home in improved and stable condition. Impression: 1. Atypical chest pain. 2. Indeterminate troponin. 3. LORI score of 1. 4. Left AGAINST MEDICAL ADVICE. This note was generated with [employer] dictation software. It may contain incorrect words, spelling, and punctuation that were not noted in review of the chart prior to signing ED Disposition - Plan for ED Patient: Disposition: Against Medical Advice Instructions: ED Chest Pain Atypical Unkn Cause Referrals: Gerald Rachel MD [Primary Care Provider] - As soon as possible
--- NOTE | 2018-09-10 01:06 | HP.PCM_ITS ---
History of Present Illness The patient is a 53 year old M [] Past Medical History Allergies No Known Allergies Allergy (Verified 09/09/18 23:50) Home Medications: Ambulatory Orders Medication Instructions Recorded glipiZIDE [Glucotrol] 10 mg PO BID 12/12/16 Gabapentin [Neurontin] 1,600 mg PO BID 06/05/17 Metformin HCl 1,000 mg PO BID 08/09/17 Smoking Status: Current every day smoker - Physical Exam Vital Signs Temp Pulse Resp BP Pulse Ox 98.0 F 89 18 102/87 H 100 09/09/18 22:20 09/09/18 23:51 09/09/18 22:20 09/09/18 23:51 09/09/18 22:20 Weight: 77.6 kg Body Mass Index (BMI) 24.5 Finger Stick Blood Glucose 275 Laboratory Tests Past 24 Hrs 09/09/18 09/09/18 09/10/18 22:07 22:07 00:27 WBC 5.1 RBC 5.15 Hgb 16.6 H Hct 45.1 MCV 87.6 MCH 32.2 H MCHC 36.2 H RDW 13.8 RDW Differential 44.4 H Plt Count 200 MPV 10.5 Immature Gran % (Auto) 0.200 Neut % (Auto) 51.6 Lymph % (Auto) 35.4 [place] % (Auto) 12.0 H Eos % (Auto) 0.6 Baso % (Auto) 0.2 Absolute Neuts (auto) 2.6 Absolute Lymphs (auto) 1.80 Total Counted Not Reportable D-Dimer Quant (PE/DVT) < 0.27 L Sodium 142 Potassium 3.7 Chloride 103 Carbon Dioxide 27.0 Anion Gap 12 BUN 9 Creatinine 0.79 Estim Creat Clear Calc 109.09 Est GFR (MDRD) Af Amer 131 Est GFR (MDRD) Non-Af 108 BUN/Creatinine Ratio 11.4 Glucose 168 H Calcium 9.4 Troponin I 0.077 H
[2018-09-10 01:14] VITALS: BP 141/70; PULSE 101; RESP 14; O2SAT 97
== END 2018-09-10 01:15 | disposition left against medical advice (07) ==
PROVIDERS: Emergency Provider Emergency Medicine; Family Provider Family Medicine; PCP Family Medicine
DX: R07.89 Other chest pain (principal)
CPT/HCPCS: 71045; 80048; 84484; 85025; 85379; 93005; 96360; 99285; J7030; A4216

== ENCOUNTER 2018-09-16 19:34 | Emergency (ER) | payer MEDICARE, SELFPAY ==
[2018-09-16 19:34] VITALS: BP 139/77; PULSE 94; RESP 20; TEMP 36.8; O2SAT 99; BMI 25.8
--- NOTE | 2018-09-16 20:10 | ED.DCSUM_ITS ---
- ER Visit Summary Date of Service: 09/16/18 Chief Complaint: [Sore throat and cough] History of Present Illness: The patient is a 53 M [to the emergency department 3 to 4-day history of sore throat and cough. Patient states that he is been coughing up thick green sputum. He denies any fevers. Patient denies any ear pain. Denies vomiting or diarrhea. He denies sick contacts. Patient is a diabetic.] Physical Examination: [HEENT-PERRLA, EOMI. Cranial nerves II through XII canelo sly intact. TMs clear. Mucous membranes moist. No adenopathy. She has mild pharyngeal erythema. No tonsillar exudates. Uvula in the midline without trismus. Cardiovascular-regular rate and rhythm without murmur or ectopy Lungs-clear to auscultation, chest wall stable without crepitus or subcu emphysema Abdomen-normoactive bowel sounds, soft, nontender, no rebound or rigidity, no peritoneal signs. Extremities-intact ?4, normal range of motion, normal pulses, atraumatic] Test Results: [None indicated] Emergency Department Course and Treatment: [Patient was started on Zithromax] Treatment Plan: [Patient will be treated with Zithromax and Tessalon Perles. Patient advised to follow-up with primary care physician 3 to 5 days.] Disposition: [Discharged home in stable condition] Impression: [Upper respiratory infection] This note was generated with [employer] dictation software. It may contain incorrect words, spelling, and punctuation that were not noted in review of the chart prior to signing ED Disposition - Plan for ED Patient: Referrals: Gerald Rachel MD [Primary Care Provider] -
--- NOTE | 2018-09-16 20:10 | ED.DEP ---
ED Disposition - Plan for ED Patient: Instructions: ED Upper Resp Infec Abx Tx Prescriptions: Azithromycin [Zithromax] 250 mg PO DAILY #4 tab Benzonatate [Tessalon Perle] 200 mg PO TID PRN PRN #20 cap PRN Reason: Cough Referrals: Gerald Rachel MD [Primary Care Provider] - 5-7 Days
[2018-09-16] MEDS: Azithromycin 250 MG Tablet 500 MG PO (20:22)
== END 2018-09-16 20:23 | disposition home or self-care (01) ==
PROVIDERS: Emergency Provider Emergency Medicine; Family Provider Family Medicine; PCP Family Medicine
DX: J06.9 Acute upper respiratory infection, unspecified (principal); E11.9 Type 2 diabetes mellitus without complications; Z72.0 Tobacco use; Z79.84 Long term (current) use of oral hypoglycemic drugs; Z79.899 Other long term (current) drug therapy
CPT/HCPCS: 99283

== ENCOUNTER 2018-10-06 16:51 | Emergency (ER) | payer MEDICARE, SELFPAY ==
[2018-10-06 16:52] VITALS: BP 146/88; PULSE 114; RESP 18; TEMP 36.8; O2SAT 96; BMI 23.8
--- NOTE | 2018-10-06 17:21 | EKG12_ITS ---
Test Reason : MENTAL HEALTH Blood Pressure : / mmHG Vent. Rate : 101 BPM Atrial Rate : 101 BPM P-R Int : 126 ms QRS Dur : 090 ms QT Int : 348 ms P-R-T Axes : 087 094 -63 degrees QTc Int : 451 ms Sinus tachycardia Possible Left atrial enlargement Rightward axis Left ventricular hypertrophy T wave abnormality, consider inferior ischemia Abnormal ECG Confirmed by FOX BUI, SHANE ([id number]), social media editor JOSE CRUMP ([id number]) on 10/09/2018 11:57:53 AM Referred By: ALO/ERICKSON Confirmed By:SHANE BRAXTON MD
--- NOTE | 2018-10-06 17:21 | RAD_ITS ---
STUDY: X-RAY CHEST REASON FOR EXAM: Male, 53 years old. Chest pain. TECHNIQUE: Single AP portable view of the chest. COMPARISON: 09/09/2018 FINDINGS: The lungs are clear and expanded. There is no demonstrated pleural abnormality. Normal size heart. Normal mediastinum and estelita. Normal visualized pulmonary arteries. Normal visualized aortic arch and descending thoracic aorta. There are diffuse degenerative changes of the visualized thoracic spine. Normal visualized ribs, clavicles, and shoulders. There is no demonstrated abnormality of the visualized soft tissue structures of the upper abdomen. RAD/Chest 1 View (Portable) IMPRESSION: No acute chest disease. Electronically Signed: Paipto Burns MD at 17:41 EDT , Service support ,
[2018-10-06 17:48] LABS: Absolute Lymphocyte Count 2.35 X10^3/ul (0.83-4.51); Absolute Neutrophil Count 2.6 X10^3/uL (2.0-7.7); Basophil# 0.01 X10^3/uL; Basophil% 0.2 % (0-1); Eosinophil# 0.05 X10^3/uL; Eosinophils% 0.9 % (0-5); Hematocrit 43.3 % (40-54); Hemoglobin 15.6 g/dl (13.0-16.5); Lymphocyte # 2.35 X10^3/ul (4.0); Lymphocyte % 41.4 % (19-41); Mean Corpuscular Hgb 31.4 pg (27.0-32.0); Mean Corpuscular Volume 87.1 fL (80-94); Mean Platelet Vol. 9.6 fl (6.2-12.0); Monocyte# 0.71 X10^3/uL; Monocyte% 12.5 % (0-10); Neutrophil # 2.56 X10^3/uL (2.7-7.7); POSITIVE COUNT NO; POSITIVE DIFFERENTIAL NO; POSITIVE MORPHOLOGY NO; Platelet Count 223 K/mm3 (150-450); RBC Distribution Width CV 13.2 % (11.6-14.6); RBC Distribution Width SD 42.2 fl (35.1-43.9); Red Blood Count 4.97 M/mm3 (4.6-6.2); White Blood Count 5.7 K/mm3 (4.4-11.0)
[2018-10-06 18:05] LABS: AST(SGOT) 43 U/L (15-37); Alanine Aminotransfer ALT/SGPT 50 U/L (16-61); Albumin, Serum 3.8 g/dL (3.2-5.0); Alkaline Phosphatase 98 U/L (45-117); Bilirubin, Direct 0.54 mg/dL (0.00-0.30); Globulin 4.4 g/dL (2.2-4.2); Protein, Total 8.2 g/dL (6.4-8.2)
[2018-10-06 18:06] LABS: Hemoglobin A1c 7.4 % (4.2-6.3)
[2018-10-06 18:10] LABS: Alcohol, Blood (Medical)-Serum < 3.0 mg/dL
[2018-10-06 18:11] LABS: Anion Gap 6 (5-15); BUN 10 mg/dL (7-18); Calcium,Total 9.5 mg/dL (8.5-10.1); Chloride 107 mmol/L (98-107); Creatinine, Serum 0.91 mg/dL (0.70-1.30); EST Glomerular Filtration Rate 92 mL/min (>60); Est Glom Filt Rate - Afr Amer 111 mL/min (>60); Glucose 52 mg/dL (74-106); Lipase 67 U/L (73-393); Potassium 3.4 mmol/L (3.5-5.1); Sodium Level 140 mmol/L (136-145)
--- NOTE | 2018-10-06 18:20 | ED.DCSUM_ITS ---
- ER Visit Summary Date of Service: 10/06/18 Chief Complaint: Abnormal behavior History of Present Illness: The patient is a 53 M who is brought in by family for evaluation. Patient's brother is from out of town one from in town and a niece who is from [place] [place] him. The niece states that she has not seen him for a couple months. She states that he has lost weight. They found him at a gas station somewhat disheveled. He states that he has a flight of ideas and is paranoid. He is telling family that he has had thyroid cancer for 6 months and has not had any treatment. He has a history of drug use but denies taking any drugs recently. Patient has a history of schizoaffective disorder and bipolar disorder. He also has a history of hepatitis C diabetes and hypertension. On July 10 he was at his primary care physician's office and documented to be weighing 185 pounds. At that point he was refusing his diabetes medications. On he saw an nuclear equipment test engineer for thyroid nodules was scheduled for biopsy. He no showed for that appointment on August 15 and August 23. Patient currently weighs 165 pounds. 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 He states he is currently homeless living in his car. Physical Examination: Afebrile vital signs are stable Gen: Well-nourished well-developed Head: Normocephalic atraumatic Eyes: Perrl EOMI ENT: TMs clear no rhinorrhea moist mucous membranes Neck: Supple no lymphadenopathy no JVD nontender CVS: Regular rate rhythm no murmurs normal S1-S2 Respiratory: No distress clear to auscultation bilaterally chest nontender Abdomen: Soft nontender nondistended normal bowel sounds no masses Back: Nontender Extremity: Nontender no edema Skin: Normal color no rash Neuro: alert orientated ?3 normal cerebellar testing Psych: patient has nonlinear thinking and flight of ideas. At times he gets a gitated. He appears paranoid. Test Results: CBC and CMP showed a potassium 3.4. Total bili of 1.1 direct bilirubin of 0.54. TSH was normal. Total protein was 8.2. Hemoglobin A1c at 7.4. Alcohol is negative. EKG demonstrated a sinus rhythm at a rate of 100. Chest x-ray negative. Urinalysis is positive for nitrates bacteria and white blood cells. This will be sent for culture Emergency Department Course and Treatment: Patient denies any symptoms of urinary tract infection. He wishes to wait on antibiotics until the culture comes back. I do not see a reason for him to be pink slip to psychiatric hospital. I do not see a reason to admit him into the hospital. It is his choice if he does not wish to treat his diabetes. As far as his possible thyroid cancer he needs to schedule his biopsy. We did have crisis see him and they will work to get him an early appointment with his business case analyst. Family is comfortable staying with him this weekend. Impression: 1. Schizoaffective disorder 2. Uncontrolled diabetes 3. On explained weight loss This note was generated with [employer] dictation software. It may contain incorrect words, spelling, and punctuation that were not noted in review of the chart prior to signing ED Disposition - Plan for ED Patient: Disposition: Home or Assisted Living Instructions: Schizo-Affective Disorder Referrals: Gerald Rachel MD [Primary Care Provider] - As soon as possible Additional Instructions: Please keep your appointment with the counseling center. Visit with your doctors and try to reschedule your thyroid biopsy.
[2018-10-06 19:05] VITALS: BP 166/88; PULSE 98; RESP 16; O2SAT 100
[2018-10-06 19:07] LABS: Red Blood Cells-Urine 0 SEEN /hpf (0-5)
[2018-10-06 19:20] LABS: Color, Urine Amber (Yellow); Glucose, Dipstick 50 mg/dl (Normal); Ketone-Dipstick 5 mg/dl (Negative); Leukocyte Esterase-Dipstick 100 /ul (Negative); Nitrite-Dipstick Positive (Negative); Occult Blood-Urine 25 /ul (Negative); Protein-Dipstick 100 mg/dl (Negative); Specific Gravity, Urine 1.025 (1.002-1.030); Urine Bilirubin Dipstick 3 mg/dL (Negative); Urine Clarity Clear (Clear); Urine Urobilinogen 12 mg/dl (Normal)
[2018-10-06 19:22] LABS: White Blood Cells 5-10 SEEN /hpf (0-5)
[2018-10-06 19:23] LABS: Bacteria 2+ /hpf (None Seen); Hyaline Cast 0-5 SEEN /lpf (0-5); Mucous, Urine 3+ /hpf (<or=2+); Squamous Epithelial Cells - UA 0-5 SEEN /hpf (0-5)
[2018-10-06 19:25] LABS: Amphetamine Urine VISTA POSITIVE (<1000 ng/mL); Barbiturate Urine VISTA NEGATIVE (< 200 ng/mL); Benzodiazepine Urine VISTA NEGATIVE (< 200 ng/mL); Cocaine Urine VISTA NEGATIVE (< 300 ng/mL); Ecstacy Urine VISTA NEGATIVE (< 500 ng/mL); Methadone Urine VISTA NEGATIVE (< 300 ng/mL); PCP Urine VISTA NEGATIVE (< 25 ng/mL); THC Urine VISTA POSITIVE (< 50 ng/mL); Vista UDS pH Range 5
== END 2018-10-06 19:54 | disposition home or self-care (01) ==
PROVIDERS: Emergency Provider Emergency Medicine; Family Provider Family Medicine; PCP Family Medicine
DX: F25.9 Schizoaffective disorder, unspecified (principal); E11.9 Type 2 diabetes mellitus without complications; R63.4 Abnormal weight loss; I10 Essential (primary) hypertension; Z59.0 Homelessness; Z72.0 Tobacco use; Z79.899 Other long term (current) drug therapy; Z86.19 Personal history of other infectious and parasitic diseases
CPT/HCPCS: 36415; 71045; 80048; 80076; 80307; 80320; 81001; 83036; 83690; 84443; 85025; 87086; 87088; 93005; 99282; G0480

== ENCOUNTER 2018-10-18 13:22 | Emergency (ER) | payer MEDICARE, SELFPAY ==
[2018-10-18 13:23] VITALS: BP 157/100; PULSE 117; RESP 18; TEMP 36.2; O2SAT 99; BMI 23.5
[2018-10-18 14:46] LABS: Amphetamine Urine VISTA POSITIVE (<1000 ng/mL); Barbiturate Urine VISTA NEGATIVE (< 200 ng/mL); Benzodiazepine Urine VISTA NEGATIVE (< 200 ng/mL); Cocaine Urine VISTA NEGATIVE (< 300 ng/mL); Ecstacy Urine VISTA NEGATIVE (< 500 ng/mL); Methadone Urine VISTA NEGATIVE (< 300 ng/mL); PCP Urine VISTA NEGATIVE (< 25 ng/mL); THC Urine VISTA POSITIVE (< 50 ng/mL); Vista UDS pH Range 5
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
--- NOTE | 2018-10-18 15:00 | ED.DEP ---
ED Disposition - Plan for ED Patient: Instructions: Cannabinoid Screen and Confirmation Urine Referrals: Gerald Rachel MD [Primary Care Provider] -
[2018-10-18 15:03] VITALS: RESP 16
== END 2018-10-18 15:03 | disposition home or self-care (01) ==
LOC: ED 14:28
PROVIDERS: Emergency Provider Emergency Medicine; Family Provider Family Medicine; PCP Family Medicine
DX: M79.10 Myalgia, unspecified site (principal); M25.50 Pain in unspecified joint; E11.9 Type 2 diabetes mellitus without complications; F17.210 Nicotine dependence, cigarettes, uncomplicated; Z79.84 Long term (current) use of oral hypoglycemic drugs; Z79.899 Other long term (current) drug therapy
CPT/HCPCS: 80307; 99282

== ENCOUNTER 2018-10-29 22:55 | Emergency (ER) | payer MEDICARE, SELFPAY ==
[2018-10-29 23:00] VITALS: BP 143/4; PULSE 111; RESP 18; TEMP 36.1; O2SAT 95; BMI 22.9
--- NOTE | 2018-10-30 00:13 | ED.VISSUMM ---
- ER Visit Summary Date of Service: 10/30/18 Chief Complaint: It is hard getting around History of Present Illness: The patient is a 53 M who presents because he essentially did not have anywhere else to go. He states he is not safe where he was previously staying. He says the [employer] told him that they did not have any beds. He would just walk all night but his feet have been hurting. He has a history of diabetic neuropathy. Is also concerned because he has not really been able to wash his feet and when he is unable to wash his feet they hurt more. He says he might have gout. Physical Examination: Afebrile vitals notable for heart rate 111 No distress Heart regular No respiratory distress There is a scaly rash between the toes especially between the fourth and fifth digits on each feet consistent with tinea pedis Test Results: Not indicated Emergency Department Course and Treatment: Patient will be treated with an antifungal cream. He was discharged. Treatment Plan: [] Disposition: Discharge Impression: Tinea pedis This note was generated with [employer] dictation software. It may contain incorrect words, spelling, and punctuation that were not noted in review of the chart prior to signing ED Disposition - Plan for ED Patient: Referrals: Gerald Rachel MD [Primary Care Provider] -
--- NOTE | 2018-10-30 00:15 | ED.DEP ---
ED Disposition - Plan for ED Patient: Instructions: Athlete'S Foot Prescriptions: Clotrimazole [Lotrimin] 1 applicatio TOPICAL BID #1 tube Prescription Printed Referrals: Gerald Rachel MD [Primary Care Provider] -
== END 2018-10-30 01:01 | disposition home or self-care (01) ==
PROVIDERS: Emergency Provider Emergency Medicine; Family Provider Family Medicine; PCP Family Medicine
DX: B35.3 Tinea pedis (principal); E11.40 Type 2 diabetes mellitus with diabetic neuropathy, unspecified; Z72.0 Tobacco use; Z79.84 Long term (current) use of oral hypoglycemic drugs; Z79.899 Other long term (current) drug therapy
CPT/HCPCS: 99282